=== PATIENT | female | born 1985 | race Caucasian/White ===

== ENCOUNTER 2020-07-16 13:10 | Outpatient (RCR) | payer MEDICARE, MEDICAID, SELFPAY | END 2020-08-09 07:58 | disposition home or self-care (01) | LOC: HO.WCC 13:10 | PROVIDERS: PCP Family Medicine; Visit Provider Surgery | DX: E10.622 Type 1 diabetes mellitus with other skin ulcer (principal); L89.152 Pressure ulcer of sacral region, stage 2; E10.43 Type 1 diabetes mellitus with diabetic autonomic (poly)neuropathy; K31.84 Gastroparesis; Z79.4 Long term (current) use of insulin | CPT/HCPCS: 99202; 99212 ==

== ENCOUNTER → 2020-10-03 09:22 | Outpatient (BNVA) | payer MEDICARE, MEDICAID, SELFPAY | PROVIDERS: PCP Family Medicine; Visit Provider Nurse Practitioner Family | DX: Z13.89 Encounter for screening for other disorder (principal) | CPT/HCPCS: 99202 ==